=== PATIENT | male | born 1925 | race Caucasian/White ===

== ENCOUNTER 2016-12-30 13:13 | Emergency (ER) | payer OTHER ==
[~2016-12-30] VITALS: Ht 172.7 cm; Wt 112.6 kg
[~2016-12-30 13:13] MED LIST: ASPIRIN81 M1 PO; CENTRUM SILVER1 EAC3 PO; FIBERCON625 MG PO; HYDROCHLOROTHIA25 MG PO; LEVOTHYROXINE75 MCG PO; LOPID600 MG PO; LOTREL 10/41 CAPSULE PO; OCUVITE EXTRA1 EACH PO; PRAVACHOL80 MG PO; TYLENOL EXTRA500 MG PO
[2016-12-30 15:20] VITALS: BP 178/74
== END 2016-12-30 15:27 | disposition home or self-care (01) ==
LOC: EME 13:13
DX: S01.112A Laceration without foreign body of left eyelid and periocular area, initial encounter (principal); W01.0XXA Fall on same level from slipping, tripping and stumbling without subsequent striking against object, initial encounter; Y92.008 Other place in unspecified non-institutional (private) residence as the place of occurrence of the external cause; I11.0 Hypertensive heart disease with heart failure; I50.9 Heart failure, unspecified; E78.5 Hyperlipidemia, unspecified; I25.2 Old myocardial infarction; Z95.1 Presence of aortocoronary bypass graft; Z79.82 Long term (current) use of aspirin
CPT/HCPCS: 70450; 70486; 72125; 99281; 99283

== ENCOUNTER 2017-03-26 11:35 | Inpatient (IN) | payer OTHER ==
[~2017-03-26] VITALS: Ht 175.3 cm; Wt 111.6 kg
[~2017-03-26 11:35] MED LIST changes: +ASPIR-LOW81 MG PO; -ASPIRIN81 M1 PO; -CENTRUM SILVER1 EAC3 PO; +LEVOTHYROXINE100 MCG PO; -LEVOTHYROXINE75 MCG PO; +MEN'S 50 PLUS1 EACH PO; -OCUVITE EXTRA1 EACH PO; +OCUVITE TABLET1 EACH PO
[2017-03-26 13:24] LABS: EOSINOPHIL (%) 0 % (0-5); IMMATURE GRANULOCYTE (%) 0.4 % (0.0-0.7); IMMATURE GRANULOCYTE COUNT 0.1 K/uL; INSTRUMENT ABS NEUTROPHIL CT 11.4 K/uL; LYMPHOCYTE COUNT 1.1 K/uL (1.0-2.8); MCH 31.3 PG (29.0-34.0); MCHC 33.1 G/DL (30.0-36.0); MCV 94.7 FL (86-99); MEAN PLAT.VOLUME 13.2 uM^3 (9.0-12.4); MONOCYTE (%) 6.9 % (3-12); MONOCYTE COUNT 0.9 K/uL (0-0.8); NEUTROPHIL (%) 84.7 % (45-76); NEUTROPHIL COUNT 11.4 K/uL (1.8-6.4); PLATELET COUNT 132 K/uL (156-360); RBC DIS.WIDTH-CV 15.6 % (11.8-14.6); RED BLOOD COUNT 4.12 M/uL (4.00-5.50); WHITE BLOOD COUNT 13.5 K/uL (4.1-10.2)
[2017-03-26 13:31] LABS: INTER. NORMALIZED RATIO 1.4; PROTHROMBIN TIME 15.8 SEC (10.2-12.9)
[2017-03-26 13:34] LABS: PTT 32.2 SEC (25-37)
[2017-03-26 13:37] LABS: CHLORIDE 109 mEq/L (99-109); POTASSIUM 3.8 mEq/L (3.7-5.4); SODIUM 142 mEq/L (136-147)
[2017-03-26 13:38] LABS: MAGNESIUM 2.5 mg/dL (1.3-2.7)
[2017-03-26 13:39] LABS: GLUCOSE 132 mg/dL (70-99)
[2017-03-26 13:40] LABS: ANION GAP 16 MEQ/L (2-14)
[2017-03-26 13:43] LABS: GFR ESTIMATE (CALCULATED) 34 mL/min/
[2017-03-26 13:44] LABS: UREA NITROGEN (BUN) 29 mg/dL (9-23)
[2017-03-26 13:54] LABS: TROP-I INTERPRETATION POSITIVE
[2017-03-26 14:00] LABS: CREATINE KINASE 5072 IU/L (1-294)
[2017-03-26 14:01] LABS: TROPONIN-I 19.22 ng/mL (0.0-0.30)
[2017-03-26] MEDS ORDERED: ELIQUIS5 MG PO (14:57)
[2017-03-26 15:45] LABS: HEMATOCRIT 36.3 % (38.0-50.0); MCH 31.6 PG (29.0-34.0); MCHC 33.3 G/DL (30.0-36.0); MCV 94.8 FL (86-99); MEAN PLAT.VOLUME 13.3 uM^3 (9.0-12.4); PLATELET COUNT 124 K/uL (156-360); RBC DIS.WIDTH-CV 15.6 % (11.8-14.6); RBC DIS.WIDTH-SD 54.6 % (39-53); RED BLOOD COUNT 3.83 M/uL (4.00-5.50); WHITE BLOOD COUNT 12.5 K/uL (4.1-10.2)
[2017-03-26 15:50] LABS: CHLORIDE 111 mEq/L (99-109); POTASSIUM 3.8 mEq/L (3.7-5.4); SODIUM 141 mEq/L (136-147)
[2017-03-26 15:53] LABS: GLUCOSE 123 mg/dL (70-99)
[2017-03-26 15:54] LABS: ANION GAP 11 MEQ/L (2-14); TOTAL BILIRUBIN 1.8 mg/dL (0.0-1.0)
[2017-03-26 15:56] LABS: ALKALINE PHOSPHATASE 83 IU/L (3-129); GFR ESTIMATE (CALCULATED) 36 mL/min/
[2017-03-26 15:57] LABS: UREA NITROGEN (BUN) 29 mg/dL (9-23)
[2017-03-26 16:30] LABS: HDL CHOLESTEROL 38 MG/DL (Desirable>=40); LDL CHOLESTEROL 69 mg/dL (Desirable<100); NON-HDL CHOLESTEROL 94 mg/dL (Desirable<160); TOTAL CHOLESTEROL 132 mg/dL (Desirable<200); TRIGLYCERIDES 123 MG/DL (Normal: <150)
[2017-03-26 17:02] LABS: ADD MIUA? YES; BILIRUBIN NEGATIVE; BLOOD LARGE; COLOR YELLOW ((YELLOW)); GLUCOSE (STRIP) NEGATIVE; KETONES 5; LEUKOCYTES SMALL; NITRITE NEGATIVE; PROTEIN (STRIP) 100; SPECIFIC GRAVITY 1.014 (1.000-1.030)
[2017-03-26 17:13] LABS: BACTERIA NONE SEEN /HPF; CELLULAR CASTS 0-5 /LPF; EPITHELIAL CELLS RARE /HPF; MUCUS TRACE /LPF; RED BLOOD CELLS 15-20 /HPF (0-5); UCUL ADDED? YES; WHITE BLOOD CELLS 15-20 /HPF (0-5)
[2017-03-26 18:22] LABS: Estimated Average Glucose 108 mg/dL (70-123); HEMOGLOBIN A1c (GLYCOHEMOGLOB) 5.4 % HGB (Below 5.7)
[2017-03-26 18:36] LABS: TROP-I INTERPRETATION POSITIVE
[2017-03-26 18:58] LABS: TROPONIN-I 22.07 ng/mL (0.0-0.30)
[2017-03-26 20:25] LABS: TROP-I INTERPRETATION POSITIVE; TROPONIN-I 21.72 ng/mL (0.0-0.30)
[2017-03-26 21:15] VITALS: BP 139/72
[2017-03-26 21:20] VITALS: BP 145/61
[2017-03-26 22:51] LABS: METH RESISTANT S AUREUS PCR POSITIVE (NEGATIVE)
[2017-03-26 22:53] LABS: PROBE CHECK PASS
[2017-03-27] VITALS: BP 122/107
[2017-03-27 00:26] LABS: TROP-I INTERPRETATION POSITIVE
[2017-03-27 00:42] LABS: TROPONIN-I 23.43 ng/mL (0.0-0.30)
[2017-03-27 02:02] LABS: TROP-I INTERPRETATION POSITIVE
[2017-03-27 02:54] LABS: TROPONIN-I 20.72 ng/mL (0.0-0.30)
[2017-03-27 04:00] VITALS: BP 131/57
[2017-03-27 06:48] LABS: TROP-I INTERPRETATION POSITIVE; TROPONIN-I 23.37 ng/mL (0.0-0.30)
[2017-03-27 06:55] LABS: ANION GAP 9 MEQ/L (2-14); CHLORIDE 112 MEQ/L (99-109); POTASSIUM 4.2 MEQ/L (3.7-5.4); SAMPLE HEMOLYSIS CHECK 2; SAMPLE ICTERIC CHECK 0; SAMPLE LIPEMIA CHECK 0; SODIUM 142 MEQ/L (136-147); UREA NITROGEN (BUN) 27 mg/dL (9-23)
[2017-03-27 06:56] LABS: GFR ESTIMATE (CALCULATED) 51 mL/min/; GLUCOSE 90 mg/dL (70-99)
[2017-03-27 06:57] LABS: CREATINE KINASE 3366 IU/L (1-294)
[2017-03-27 08:00] VITALS: BP 142/57
[2017-03-27 12:00] VITALS: BP 134/62
[2017-03-27 16:00] VITALS: BP 165/91
[2017-03-27 20:00] VITALS: BP 145/68
[2017-03-28] VITALS: BP 152/74
[2017-03-28 04:00] VITALS: BP 165/94
[2017-03-28 07:42] LABS: ANION GAP 6 MEQ/L (2-14); CHLORIDE 113 MEQ/L (99-109); GFR ESTIMATE (CALCULATED) > 59 mL/min/; GLUCOSE 100 mg/dL (70-99); POTASSIUM 3.4 MEQ/L (3.7-5.4); SAMPLE HEMOLYSIS CHECK 0; SAMPLE ICTERIC CHECK 0; SAMPLE LIPEMIA CHECK 0; SODIUM 142 MEQ/L (136-147); UREA NITROGEN (BUN) 22 mg/dL (9-23)
[2017-03-28 08:00] VITALS: BP 145/88
[2017-03-28 12:00] VITALS: BP 142/76
[2017-03-28 16:00] VITALS: BP 142/76
[2017-03-28 20:00] VITALS: BP 143/57
[2017-03-29] VITALS: BP 166/87
[2017-03-29 04:00] VITALS: BP 89/70
[2017-03-29 08:00] VITALS: BP 181/89
[2017-03-29 08:09] LABS: ANION GAP 7 MEQ/L (2-14); CHLORIDE 111 MEQ/L (99-109); GFR ESTIMATE (CALCULATED) 55 mL/min/; GLUCOSE 99 mg/dL (70-99); SAMPLE HEMOLYSIS CHECK 0; SAMPLE ICTERIC CHECK 0; SAMPLE LIPEMIA CHECK 0; SODIUM 139 MEQ/L (136-147); UREA NITROGEN (BUN) 21 mg/dL (9-23)
[2017-03-29 08:13] LABS: POTASSIUM 4.3 MEQ/L (3.7-5.4)
[2017-03-29 10:00] VITALS: BP 147/62
[2017-03-30] VITALS (8 sets, daily range): BP systolic 138–181; BP diastolic 53–78
[2017-03-30 05:54] LABS: EOSINOPHIL (%) 3.9 % (0-5); EOSINOPHIL COUNT 0.2 K/uL (0-0.3); HEMATOCRIT 29.3 % (38.0-50.0); IMMATURE GRANULOCYTE (%) 0.7 % (0.0-0.7); INSTRUMENT ABS NEUTROPHIL CT 3.6 K/uL; LYMPHOCYTE COUNT 1.1 K/uL (1.0-2.8); MCHC 32.8 G/DL (30.0-36.0); MCV 97.7 FL (86-99); MEAN PLAT.VOLUME 13.8 uM^3 (9.0-12.4); MONOCYTE COUNT 0.5 K/uL (0-0.8); NEUTROPHIL (%) 66.5 % (45-76); NEUTROPHIL COUNT 3.6 K/uL (1.8-6.4); PLATELET COUNT 112 K/uL (156-360); RBC DIS.WIDTH-CV 16.1 % (11.8-14.6); RBC DIS.WIDTH-SD 55.9 % (39-53); WHITE BLOOD COUNT 5.4 K/uL (4.1-10.2)
[2017-03-30 05:57] LABS: ANION GAP 8 MEQ/L (2-14); CHLORIDE 112 MEQ/L (99-109); GFR ESTIMATE (CALCULATED) > 59 mL/min/; GLUCOSE 87 mg/dL (70-99); POTASSIUM 3.8 MEQ/L (3.7-5.4); SAMPLE HEMOLYSIS CHECK 0; SAMPLE ICTERIC CHECK 0; SAMPLE LIPEMIA CHECK 0; SODIUM 140 MEQ/L (136-147); UREA NITROGEN (BUN) 15 mg/dL (9-23)
[2017-03-31 05:23] VITALS: BP 144/66
[2017-03-31 05:50] LABS: EOSINOPHIL (%) 3.7 % (0-5); EOSINOPHIL COUNT 0.3 K/uL (0-0.3); HEMATOCRIT 30.6 % (38.0-50.0); IMMATURE GRANULOCYTE (%) 0.7 % (0.0-0.7); IMMATURE GRANULOCYTE COUNT 0.1 K/uL; INSTRUMENT ABS NEUTROPHIL CT 4.5 K/uL; LYMPHOCYTE COUNT 1.3 K/uL (1.0-2.8); MCH 32.2 PG (29.0-34.0); MCHC 33.3 G/DL (30.0-36.0); MCV 96.5 FL (86-99); MEAN PLAT.VOLUME 13.5 uM^3 (9.0-12.4); MONOCYTE (%) 10.1 % (3-12); MONOCYTE COUNT 0.7 K/uL (0-0.8); NEUTROPHIL (%) 66.6 % (45-76); NEUTROPHIL COUNT 4.5 K/uL (1.8-6.4); PLATELET COUNT 123 K/uL (156-360); RBC DIS.WIDTH-CV 16.2 % (11.8-14.6); RBC DIS.WIDTH-SD 55.8 % (39-53); RED BLOOD COUNT 3.17 M/uL (4.00-5.50); WHITE BLOOD COUNT 6.8 K/uL (4.1-10.2)
[2017-03-31 06:12] LABS: ANION GAP 8 MEQ/L (2-14); CHLORIDE 112 MEQ/L (99-109); GFR ESTIMATE (CALCULATED) > 59 mL/min/; GLUCOSE 99 mg/dL (70-99); POTASSIUM 3.9 MEQ/L (3.7-5.4); SAMPLE HEMOLYSIS CHECK 0; SAMPLE ICTERIC CHECK 0; SAMPLE LIPEMIA CHECK 0; SODIUM 143 MEQ/L (136-147); UREA NITROGEN (BUN) 10 mg/dL (9-23)
[2017-03-31 07:46] VITALS: BP 122/64
[2017-03-31 11:27] VITALS: BP 126/60
[2017-03-31 15:05] VITALS: BP 128/60
[2017-03-31 16:33] LABS: ADD MIUA? NO; BILIRUBIN NEGATIVE; BLOOD NEGATIVE; COLOR YELLOW ((YELLOW)); GLUCOSE (STRIP) NEGATIVE; KETONES NEGATIVE; LEUKOCYTES NEGATIVE; NITRITE NEGATIVE; PROTEIN (STRIP) 30; SPECIFIC GRAVITY 1.012 (1.000-1.030)
[2017-03-31 20:08] VITALS: BP 160/58
[2017-04-01] VITALS (7 sets, daily range): BP systolic 135–169; BP diastolic 58–84
[2017-04-02 03:11] VITALS: BP 154/78
[2017-04-02 04:25] VITALS: BP 171/83
[2017-04-02 08:30] VITALS: BP 152/78
[2017-04-02] MEDS ORDERED: ELIQUIS5 MG PO (11:16)
[2017-04-02] MEDS ORDERED: NITROSTAT0.4 MG SL (11:16)
[2017-04-02] MEDS ORDERED: CLOPIDOGREL75 MG PO (11:16)
[2017-04-02] MEDS ORDERED: ATORVASTATIN CA80 MG PO (11:16)
[2017-04-02 11:30] VITALS: BP 110/52
== END 2017-04-02 13:58 | DRG 249 ==
LOC: EME 11:35 → 4WEST 15:09 → EDOF 15:09 → ENRESERV 15:25 → 4WEST 21:05 → ENRESERV 03-30 13:40 → 4EAST 03-30 15:13
PROVIDERS: Emergency Medicine; Hospitalist; Internal Medicine; Internal Medicine Cardiovascular Disease
DX: I21.4 Non-ST elevation (NSTEMI) myocardial infarction (principal); N17.9 Acute kidney failure, unspecified; I25.810 Atherosclerosis of coronary artery bypass graft(s) without angina pectoris; I25.84 Coronary atherosclerosis due to calcified coronary lesion; F03.90 Unspecified dementia, unspecified severity, without behavioral disturbance, psychotic disturbance, mood disturbance, and anxiety; F05 Delirium due to known physiological condition; S09.90XA Unspecified injury of head, initial encounter; T79.6XXA Traumatic ischemia of muscle, initial encounter; S22.41XA Multiple fractures of ribs, right side, initial encounter for closed fracture; W19.XXXA Unspecified fall, initial encounter; Y92.002 Bathroom of unspecified non-institutional (private) residence as the place of occurrence of the external cause; I48.0 Paroxysmal atrial fibrillation; I10 Essential (primary) hypertension; I70.201 Unspecified atherosclerosis of native arteries of extremities, right leg; G47.33 Obstructive sleep apnea (adult) (pediatric); Z66 Do not resuscitate; S40.011A Contusion of right shoulder, initial encounter; S30.1XXA Contusion of abdominal wall, initial encounter; M19.011 Primary osteoarthritis, right shoulder; M75.101 Unspecified rotator cuff tear or rupture of right shoulder, not specified as traumatic; R73.03 Prediabetes; E03.9 Hypothyroidism, unspecified; E78.5 Hyperlipidemia, unspecified; I44.0 Atrioventricular block, first degree; N20.0 Calculus of kidney; N28.1 Cyst of kidney, acquired; K57.90 Diverticulosis of intestine, part unspecified, without perforation or abscess without bleeding; K43.9 Ventral hernia without obstruction or gangrene; H91.90 Unspecified hearing loss, unspecified ear; Z60.2 Problems related to living alone; Z95.1 Presence of aortocoronary bypass graft; Z95.5 Presence of coronary angioplasty implant and graft; Z79.02 Long term (current) use of antithrombotics/antiplatelets; Z79.82 Long term (current) use of aspirin; Z86.79 Personal history of other diseases of the circulatory system; Z82.49 Family history of ischemic heart disease and other diseases of the circulatory system
CPT/HCPCS: 70450; 71010; 71250; 73020; 73030; 73060; 74176; 80048; 80053; 80061; 81003; 82550; 82550 91; 83036; 83735; 84484; 85025; 85027; 85347; 85610; 85730; 87040; 87086; 87641; 90686; 93005; 94660; 97530 GP; 99281; 99285; C1725; C1769; C1876; C1887; C1894; J0153; J0461; J0583; J1644; J2250; J2270; J3010; J7030; J7040; J7050

== ENCOUNTER 2017-08-15 08:11 | Inpatient (IN) | payer OTHER ==
[~2017-08-15] VITALS: Ht 175.3 cm; Wt 99.8 kg
[~2017-08-15 08:11] MED LIST changes: +ATORVASTATIN CA80 MG PO; +CLOPIDOGREL75 MG PO; +ELIQUIS5 MG PO; +NITROSTAT0.4 MG SL
[2017-08-15 09:02] LABS: BASOPHIL (%) 0.8 % (0-1); BASOPHIL COUNT 0.1 K/uL (0-0.1); EOSINOPHIL (%) 2.7 % (0-5); EOSINOPHIL COUNT 0.2 K/uL (0-0.3); HEMATOCRIT 28.3 % (38.0-50.0); HEMOGLOBIN 9.4 G/DL (12.5-16.6); IMMATURE GRANULOCYTE (%) 0.4 % (0.0-0.7); LYMPHOCYTE (%) 19.4 % (15-42); LYMPHOCYTE COUNT 1.4 K/uL (1.0-2.8); MCH 30.4 PG (29.0-34.0); MCHC 33.2 G/DL (30.0-36.0); MCV 91.6 FL (86-99); MONOCYTE (%) 9.5 % (3-12); MONOCYTE COUNT 0.7 K/uL (0-0.8); NEUTROPHIL (%) 67.2 % (45-76); NEUTROPHIL COUNT 4.9 K/uL (1.8-6.4); PLATELET COUNT 131 K/uL (156-360); RBC DIS.WIDTH-CV 16.1 % (11.8-14.6); RBC DIS.WIDTH-SD 54.2 % (39-53); RED BLOOD COUNT 3.09 M/uL (4.00-5.50); WHITE BLOOD COUNT 7.3 K/uL (4.1-10.2)
[2017-08-15 09:11] LABS: PTT 41.7 SEC (25-37)
[2017-08-15 09:35] LABS: CHLORIDE 104 MEQ/L (99-109); CREATININE 1.5 MG/DL (0.6-1.3); GFR ESTIMATE (CALCULATED) 47 mL/min/ (58.99-99999); GLUCOSE 105 mg/dL (70-99); POTASSIUM 3.8 MEQ/L (3.7-5.4); SODIUM 136 MEQ/L (136-147); UREA NITROGEN (BUN) 25 mg/dL (9-23)
[2017-08-15 09:39] LABS: TROP-I INTERPRETATION POSITIVE; TROPONIN-I 3.22 ng/mL (0.0-0.30)
[2017-08-15] MEDS ORDERED: LOTENSIN40 MG PO (10:31)
[2017-08-15] MEDS ORDERED: PLAVIX75 MG PO (10:31)
[2017-08-15] MEDS ORDERED: CENTRUM SILVER1 EAC1 PO (10:33)
[2017-08-15] MEDS ORDERED: LASIX20 MG PO (10:34)
[2017-08-15 10:58] LABS: THYROTROPIN (TSH) 4.1 MIU/L (0.4-5.5)
[2017-08-15 11:11] VITALS: BP 139/63
[2017-08-15 15:40] LABS: TROP-I INTERPRETATION POSITIVE; TROPONIN-I 3.22 ng/mL (0.0-0.30)
[2017-08-15 17:09] VITALS: BP 144/66
[2017-08-15 19:57] VITALS: BP 129/51
[2017-08-15 22:13] LABS: TROP-I INTERPRETATION POSITIVE; TROPONIN-I 2.95 ng/mL (0.0-0.30)
[2017-08-15 22:49] VITALS: BP 124/76
[2017-08-16 05:01] VITALS: BP 118/62
[2017-08-16 06:12] LABS: HDL CHOLESTEROL 31 MG/DL (Desirable>=40); LDL CHOLESTEROL 32 mg/dL (Desirable<100); NON-HDL CHOLESTEROL 54 mg/dL (Desirable<160); TOTAL CHOLESTEROL 85 mg/dL (Desirable<200); TRIGLYCERIDES 111 MG/DL (Normal: <150)
[2017-08-16 08:44] VITALS: BP 153/77
[2017-08-16 11:24] VITALS: BP 123/63
[2017-08-16 11:50] LABS: CHLORIDE 101 MEQ/L (99-109); CREATININE 1.6 MG/DL (0.6-1.3); GFR ESTIMATE (CALCULATED) 43 mL/min/ (58.99-99999); GLUCOSE 104 mg/dL (70-99); SODIUM 135 MEQ/L (136-147); UREA NITROGEN (BUN) 22 mg/dL (9-23)
[2017-08-16 11:52] LABS: POTASSIUM 4.6 MEQ/L (3.7-5.4)
[2017-08-16 15:38] VITALS: BP 128/61
[2017-08-16 20:01] VITALS: BP 139/59
[2017-08-17] VITALS (7 sets, daily range): BP systolic 120–177; BP diastolic 51–119
[2017-08-17 06:03] LABS: HEMATOCRIT 30.8 % (38.0-50.0); MCH 29.9 PG (29.0-34.0); MCHC 32.5 G/DL (30.0-36.0); MCV 92.2 FL (86-99); PLATELET COUNT 135 K/uL (156-360); RBC DIS.WIDTH-CV 15.9 % (11.8-14.6); RBC DIS.WIDTH-SD 53.8 % (39-53); RED BLOOD COUNT 3.34 M/uL (4.00-5.50); WHITE BLOOD COUNT 6.6 K/uL (4.1-10.2)
[2017-08-17 06:06] LABS: CHLORIDE 101 MEQ/L (99-109); CREATININE 1.6 MG/DL (0.6-1.3); GFR ESTIMATE (CALCULATED) 43 mL/min/ (58.99-99999); GLUCOSE 94 mg/dL (70-99); POTASSIUM 4.2 MEQ/L (3.7-5.4); SODIUM 134 MEQ/L (136-147); UREA NITROGEN (BUN) 21 mg/dL (9-23)
[2017-08-18 03:33] VITALS: BP 114/54
[2017-08-18 07:46] VITALS: BP 158/67
[2017-08-18 10:04] LABS: CHLORIDE 101 MEQ/L (99-109); CREATININE 1.4 MG/DL (0.6-1.3); GFR ESTIMATE (CALCULATED) 51 mL/min/ (58.99-99999); GLUCOSE 101 mg/dL (70-99); POTASSIUM 4.1 MEQ/L (3.7-5.4); SODIUM 134 MEQ/L (136-147); UREA NITROGEN (BUN) 18 mg/dL (9-23)
[2017-08-18] MEDS ORDERED: ELIQUIS5 MG PO (10:44)
[2017-08-18] MEDS ORDERED: RANEXA500 MG PO (11:08)
== END 2017-08-18 13:35 | disposition home or self-care (01) | DRG 281 ==
LOC: EME 08:11 → 4EAST 09:56 → EDOF 09:56 → ENRESERV 09:58 → 4EAST 10:47 → ENPENDDIS 08-18 → 4EAST 08-18 13:35
PROVIDERS: Emergency Medicine; Hospitalist; Internal Medicine; Student in an Organized Health Care Education/Training Program
DX: I21.4 Non-ST elevation (NSTEMI) myocardial infarction (principal); I25.119 Atherosclerotic heart disease of native coronary artery with unspecified angina pectoris; N17.9 Acute kidney failure, unspecified; I48.0 Paroxysmal atrial fibrillation; I13.0 Hypertensive heart and chronic kidney disease with heart failure and stage 1 through stage 4 chronic kidney disease, or unspecified chronic kidney disease; I50.9 Heart failure, unspecified; N18.3 Chronic kidney disease, stage 3 (moderate); I44.1 Atrioventricular block, second degree; I45.2 Bifascicular block; I44.4 Left anterior fascicular block; G47.33 Obstructive sleep apnea (adult) (pediatric); R55 Syncope and collapse; R00.1 Bradycardia, unspecified; R21 Rash and other nonspecific skin eruption; R41.82 Altered mental status, unspecified; E78.5 Hyperlipidemia, unspecified; D64.9 Anemia, unspecified; Z95.1 Presence of aortocoronary bypass graft; Z95.5 Presence of coronary angioplasty implant and graft; I25.2 Old myocardial infarction; Z79.01 Long term (current) use of anticoagulants; Z79.82 Long term (current) use of aspirin; Z80.0 Family history of malignant neoplasm of digestive organs; Z82.49 Family history of ischemic heart disease and other diseases of the circulatory system; Z83.3 Family history of diabetes mellitus; Z86.79 Personal history of other diseases of the circulatory system
CPT/HCPCS: 71045; 80048; 80061; 84443; 84484; 85025; 85027; 85610; 85730; 92523 GN; 93005; 99281; 99284